=== PATIENT | female | born 1975 | race Caucasian/White ===

== ENCOUNTER 2019-12-08 01:48 | Day surgery (SDC) | payer BC, SELFPAY ==
[2019-12-05 09:53] VITALS: BMI 39.6
--- NOTE | 2019-12-06 09:29 | PM.IMHP ---
H&P: HPI History of Present Illness Chief complaint: Desires Sterilization/ Irregular Bleeding Narrative: Chandni Balderas is a 44 year old female 3 para 3 who is admitted for laparoscopic tubal ligation hysteroscopy dilatation curettage and Nika ablation. She has excessive heavy bleeding. She has elevated blood pressures and desires permanent sterilization. She also is a smoker and cannot take a control pill. Permanence and failure rate of 12/999 were reviewed. Risks and benefits of the procedures were reviewed in full. She had all questions answered. She read the [facility] Family History Family History Father Hypertension Cerebrovascular accident Mother Hypertension Family history of elevated blood lipids Cerebrovascular accident Family history of congestive heart failure Sibling Hypertension Social History Social History Alcohol intake: never Meds Home Medications and Allergies Home Medications Medication Instructions Recorded Confirmed Type alprazolam 0.25 mg PO DAILY PRN 12/05/19 12/05/19 History norethindrone ac-eth estradiol 1 tablet PO DAILY 12/05/19 12/05/19 History [Junel .03/02 (21)] olmesartan-hydrochlorothiazide 1 tablet PO DAILY 12/05/19 12/05/19 History rosuvastatin 20 mg PO DAILY 12/05/19 12/05/19 History valacyclovir 1,000 mg PO DAILY PRN 12/05/19 12/05/19 History venlafaxine 225 mg PO DAILY 12/05/19 12/05/19 History Allergies Allergy/AdvReac Type Severity Reaction Status Date / Time DIPHENHYDRAMINE HCL Allergy Intermediate Hives Uncoded 12/05/19 09:54 Exam Const: General: no acute distress Eyes: General: appearance normal, both eyes and all related structures Neck: Neck: supple and no JVD Thyroid: thyroid normal Resp: Effort & Inspection: normal respiratory effort Auscultation: clear to auscultation bilaterally Cardio: Rate: regular rate Rhythm: regular rhythm GI: Inspection: non-distended GI Palp: Yes Soft to palpation, No Tenderness to palpation present (GI) and No Guarding due to palpation present (GI) Auscultation: normal bowel sounds : General: Yes bladder normal to palpation External Female Exam: normal external appearance Speculum Exam - Vagina: normal vaginal discharge and No vaginal bleeding Speculum Exam - Cervix: nontender Bimanual exam- vagina & uterus: bladder normal to palpation and No Cervical tenderness present OB/external & speculum: No vaginal bleeding Skin: General skin exam: no rashes or lesions noted Extrem: General: normal to inspection and no edema Psych: Mental Status: mental status grossly normal Affect: normal affect Assessment and Plan Additional Plan impression: excessive heavy bleeding refractory to medical therapy, and desires permanent sterilization Plan: Laparoscopic tubal ligation, hysteroscopy, dilatation curettage, endometrial ablation
[2019-12-08] VITALS (10 sets, daily range): BP systolic 100–141; BP diastolic 56–93; PULSE 80–110; RESP 12–18; TEMP 36.2–37.2; O2SAT 98–100
--- NOTE | 2019-12-08 06:05 | ECG_ITS ---
Measurements Intervals [place] Rate: 85 P: 28 MT: 207 QRS: -31 QRSD: 94 T: 7 QT: 394 QTc: 469 Interpretive Statements SINUS RHYTHM WITH FIRST DEGREE AV BLOCK LEFT AXIS DEVIATION LOW QRS VOLTAGE IN PRECORDIAL LEADS INCOMPLETE RIGHT BUNDLE BRANCH BLOCK VOLTAGE CRITERIA FOR LVH BASELINE ARTIFACT- V1 ABNORMAL ECG Electronically Signed On 12-08-2019 8:06:13 PRESS TECHNICIAN by Felipe Gutierrez D.O.
--- NOTE | 2019-12-08 06:58 | WPDHPUPDATE1 ---
History and Physical Update Update Date/Time: 12/08/19 06:58 History and Physical has been reviewed, including an updated exam of the patient. There are NO changes in the patient's condition. Risks, benefits, and alternatives have been discussed and questions answered. Patient agrees to proceed with procedure.
[2019-12-08] MEDS: LACTATED RINGERS 1,000 ML 30 ML IV CONT ×2 (07:15→09:51)
[2019-12-08 07:18] LABS: Hemoglobin 11.7 g/dL (12.0-15.0)
[2019-12-08 07:48] LABS: Blood Urea Nitrogen 15 mg/dL (7-17); Calcium 8.9 mg/dL (8.4-10.2); Carbon Dioxide 27 mmol/L (22-30); Chloride 105 mmol/L (98-107); Estimated CRCL calculation 84 ml/min; Estimated Glomerular Filt Rate > 60; Glucose 103 mg/dL (65-105); Potassium 3.9 mmol/L (3.4-5.0); Sodium 139 mmol/L (137-145)
--- NOTE | 2019-12-08 08:03 | WPDANESEPPF ---
Anes - Initial Pre Proc Eval Procedure: Operation Date: 12/08/19 08:30 Proposed Procedures p Hysteroscopy, Dilation and Curettage with Nika - Eran De Paz MD s Laparoscopic Bilateral Tubal Ligation With Fallopian Rings - Eran De Paz MD Date/Time: 12/08/19 08:03 Surgeon: Eran De Paz MD Pre Op Diagnosis: Desires Sterilization/ Irregular Bleeding Patient Data Age: 44 Gender: F Height: 1.55 m Weight: 95.4 kg Last Vital Signs Temp 36.2 C L 12/08/19 06:55 Pulse 101 H 12/08/19 06:55 Resp 18 12/08/19 06:55 BP 131/86 12/08/19 06:55 Pulse Ox 99 12/08/19 06:55 Allergies Allergy/AdvReac Type Severity Reaction Status Date / Time DIPHENHYDRAMINE HCL Allergy Intermediate Hives Uncoded 12/08/19 07:21 Home Medications Medication Instructions Recorded Confirmed Type alprazolam 0.25 mg PO DAILY PRN 12/05/19 12/08/19 History norethindrone ac-eth estradiol 1 tablet PO DAILY 12/05/19 12/08/19 History [June ()] olmesartan-hydrochlorothiazide 1 tablet PO DAILY 12/05/19 12/08/19 History rosuvastatin 20 mg PO DAILY 12/05/19 12/08/19 History valacyclovir 1,000 mg PO DAILY PRN 12/05/19 12/08/19 History venlafaxine 225 mg PO DAILY 12/05/19 12/08/19 History hydrocodone-acetaminophen [[place]] 1 tablet PO Q4H PRN #20 tablet 12/08/19 Rx Laboratory Tests 12/08/19 12/08/19 07:06 07:28 Hgb 11.7 g/dL L g/dL (12.0-15.0) Hct 37.0 % % (37.0-47.0) Sodium 139 mmol/L mmol/L (137-145) Potassium 3.9 mmol/L mmol/L (3.4-5.0) Chloride 105 mmol/L mmol/L (98-107) Carbon Dioxide 27 mmol/L mmol/L (22-30) BUN 15 mg/dL mg/dL (7-17) Creatinine 0.80 mg/dL mg/dL (0.7-1.0) Estim Creat Clear Calc 84 ml/min ml/min Estimated GFR > 60 (59 - ) Glucose 103 mg/dL mg/dL (65-105) Calcium 8.9 mg/dL mg/dL (8.4-10.2) Patient hx anesthesia problems: none Family hx anesthesia problems: none PMFSH Past Medical History Medical History (Updated 12/08/19 @ 08:04 by Luis Adames MD) Anxiety Depression HTN (hypertension) Hypercholesterolemia Morbid obesity with BMI of 40.0-44.9, adult Family History Family History Father Hypertension Cerebrovascular accident Mother Hypertension Family history of elevated blood lipids Cerebrovascular accident Family history of congestive heart failure Sibling Hypertension Social History Social History Alcohol intake: never Anes - Eval Final PreProcedure Day of Procedure 12/08/19 08:03 Patient weight: morbidly obese Heart: regular rate and rhythm Lungs: clear to auscultation and normal air movement Airway: Mallampati scale class II Neurological: alert and oriented Last oral intake: >/= 8 hours ASA classification: III Emergent: no Anesthetic plan: proceed Anesthesia type and monitoring: general GIVS and LMA Informed Consent: The patient's anesthetic plan and its attendant risks and benefits were discussed with the patient/family/POA. Questions were solicited and answers provided to the satisfaction of the patient/family/POA.
[2019-12-08] MEDS: KETOROLAC 30 MG/ML VIAL (*BKC) IV PUSH (09:16)
--- NOTE | 2019-12-08 09:17 | P.OP_ITS ---
Procedure Note - Detailed Date of procedure: 12/08/19 Pre-op diagnosis: Desires Sterilization/ Irregular Bleeding Surgeon: Eran De Paz MD Postop diagnosis: Desires sterilization/irregular bleeding refractory to medical therapy Procedure: Laparoscopic bilateral tubal ligation with silastic rings, hysteros copy, dilatation curettage, endometrial ablation EBL: 10cc Complications: None Findings: Normal appearing ovaries tubes and uterus. Thick endometrial tissue on hysteroscopy. Description of procedure: The patient was prepped and draped in the normal sterile fashion and placed in the dorsal lithotomy position. Under excellent general endotracheal anesthesia weighted speculum was placed in posterior fornix of vagina. Anterior lip of the cervix was grasped with a single-tooth tenaculum. Seo's cannula was inserted to the cervix to be used later for uterine manipulation. The bladder was emptied of clear urine. The gloves were changed. An infra bowl umbilical incision was made and the Veress needle passed in the abdomen. This the abdomen was filled with CO2 gas [id number]. The 5mm trocar was advanced in the abdomen under direct visualization assuring no injury. The patient was placed in Trendelenburg. A suprapubic incision made in the 8mm trocar advanced under direct visualization assuring no injury. The right fallopian tube was grasped in a good knuckle of tube was formed its midportion. In like fashion the left fallopian tube was grasped in a good knuckle of tube formed in its midportion. Blanching was seen. No other abnormalities were seen. The gas was removed from the abdomen. The incisions closed with 4 O Monocryl and glue. Attention was turned to the hysteroscopic portion of the procedure. The uterus sounded to8.5cm. Serial dilatation with fragmented dilators performed followed by passage of the 5mm visualizing hysteroscope using normal saline as visual izing medium. Thick irregular endometrial tissue was seen but no evidence of polyp or other pathology was seen. The uterus was scraped over the entire 360? until a good grating sound was heard. The instruments were then removed and ablated instrument was placed in the uterus. It was burned [id number]. All sponge, needle, instrument counts were correct. There were immediate complications
[2019-12-08] MEDS: ONDANSETRON INJ 4 MG/2 ML VIAL IV PUSH (09:42)
== END 2019-12-08 11:47 | disposition home or self-care (01) ==
PROVIDERS: Anesthesiology; PCP Nurse Practitioner Family; Visit Provider Obstetrics & Gynecology
PROC: 0U5B8ZZ Destruction of Endometrium, Via Natural or Artificial Opening Endoscopic (ICD-10-PCS; CPT 58563; principal; 2019-12-08 08:30)
PROC: (CPT 58671; 2019-12-08 08:30)
DX: Z30.2 Encounter for sterilization (principal); N93.9 Abnormal uterine and vaginal bleeding, unspecified; N85.8 Other specified noninflammatory disorders of uterus; I10 Essential (primary) hypertension; E78.00 Pure hypercholesterolemia, unspecified; F41.8 Other specified anxiety disorders; E66.01 Morbid (severe) obesity due to excess calories; Z68.39 Body mass index [BMI] 39.0-39.9, adult
CPT/HCPCS: 58563; 58671; 36415; 80048; 85014; 85018; 88305; 93005; A4264; A9270; J0461; J1100; J1885; J2250; J2405; J2704; J2710; J3010; J7030; J7120

== ENCOUNTER 2022-12-10 11:14 | Outpatient (CLI) | payer BC, SELFPAY ==
--- NOTE | ~2022-12-10 | US_ITS ---
US renal BI DATE: 12/10/2022 11:30 INDICATION: Chronic kidney disease stage IIIa TECHNIQUE: Real-time imaging of kidneys and urinary bladder COMPARISON: None FINDINGS: Right kidney measures approximately 8 cm length, left kidney 9.5 cm length. No renal mass lesion or hydronephrosis is noted on either side. The urinary bladder is relatively evacuated but otherwise appears unremarkable. IMPRESSION: No evidence of hydronephrosis or obstructive uropathy Reviewed, dictated and finalized at [facility]. Reviewed, dictated and finalized at [facility]. [employer]
== END 2022-12-10 11:15 ==
LOC: MICIMG 11:15
PROVIDERS: PCP Internal Medicine Nephrology; Visit Provider Internal Medicine Nephrology
DX: E11.29 Type 2 diabetes mellitus with other diabetic kidney complication (principal); N18.31 Chronic kidney disease, stage 3a
CPT/HCPCS: 76775